=== PATIENT | male | born 1975 | race Caucasian/White ===

== ENCOUNTER 2018-09-22 18:38 | Emergency (ER) | payer OTHER ==
--- NOTE | 2018-09-22 20:19 | RAD ---
THREE VIEWS LEFT ANKLE: Comparison: None. History: Left ankle injury with pain. FINDINGS: Three views of the left ankle shows no evidence of acute fracture or dislocation. No degenerative gato nges are seen. No soft tissue swelling is present. IMPRESSION: Unremarkable exam. POS: DESMOND
--- NOTE | 2018-09-22 21:29 | RAD ---
THREE VIEWS OF THE LEFT FOOT: 09/22/18 COMPARISON: None. HISTORY: Left foot pain. FINDINGS: Three views of the left foot shows no evidence of acute fracture or dislocation. No soft tissue swell ing is seen. No degenerative changes are present. IMPRESSION: Unremarkable exam. POS: DESMOND
== END 2018-09-22 20:05 | disposition home or self-care (01) ==
LOC: SCSER 18:38
DX: S93.402A Sprain of unspecified ligament of left ankle, initial encounter (principal); S93.602A Unspecified sprain of left foot, initial encounter; I10 Essential (primary) hypertension; E78.00 Pure hypercholesterolemia, unspecified; F17.220 Nicotine dependence, chewing tobacco, uncomplicated; Z79.899 Other long term (current) drug therapy; X50.1XXA Overexertion from prolonged static or awkward postures, initial encounter; Y90.9 Presence of alcohol in blood, level not specified

== ENCOUNTER 2019-03-07 09:44 | Outpatient (CLI) | payer OTHER ==
--- NOTE | 2019-03-07 11:36 | RAD ---
Exam: LEFT SHOULDER ARTHROGRAM: HISTORY: Left shoulder pain. Trauma. Left glenoid labrum tear. COMPARISON: None Exposure: 0.7 minutes, 86 mGy/m2. 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 Glenohumeral joint space preserved . Visualized left ribs are unremarkable. Successful left shoulder arthrogram. A total of 10 mL of the contrast mixture was administered in the joint space. TECHNIQUE: Consent obtained to perform a left shoulder arthrogram with fluoroscopic guidance. Left oulder was prepped and draped in a sterile fashion. 1% lidocaine, buffered with sodium bicarbonate was used for local anesthesia. Under fluoroscopic guidance, a 22-gauge spinal needle was advanced in the left shoulder joint space. A total of 10 mL of contrast admixture was administered. No immediate or postprocedure complications. IMPRESSION: Successful left shoulder arthrogram. Transcribed Date/Time: 03/07/2019 12:27 PM
--- NOTE | 2019-03-07 15:38 | MRI ---
MR ARTHROGRAM OF THE LEFT SHOULDER 03/07/19 INDICATION: Left shoulder pain. TECHNIQUE: Multiplanar and multisequence MR images were obtained of the left shoulder following the intra-artic ular administration of dilute gadolinium solution. Please see the separately dictated left shoulder a rthrogram for details concerning the injection technique. FINDINGS: There is a tear involving the anterior inferior and anterior glenoid labrum extending from approximat juliano the 7 o'clock through the 3 o'clock position. Superior glenoid labrum, posterior superior glenoid labrum, and posterior glenoid labrum appear intact. Glenohumeral articular surface demonstrates a mi ld chondrosis of the anterior inferior aspect of the glenoid articular surface. Humeral head articula r surface is normal appearing. There is a degenerative subchondral cyst-like abnormality involving th e posterior gutter tuberosity. Biceps tendon is located. Biceps anchor complex is intact. There is a partial thickness articular surface tear measuring 8 x 4 mm at the level of the anterior supraspinatu s insertion involving approximately one third of the tendon thickness. There is mild AC joint osteoar throsis. No muscular atrophy is present. IMPRESSION: 1. Anterior, anterior inferior and inferior glenoid labral tear. 2. Mild chondrosis of the anterior inferior glenoid articular surface. 3. Low grade partial thickness, articular surface tear of the anterior supraspinatus at the rudy tprint. POS: CET
== END 2019-03-07 09:45 | disposition home or self-care (01) ==
LOC: RAD 09:44
PROVIDERS: ATTEND Orthopaedic Surgery
DX: S43.432A Superior glenoid labrum lesion of left shoulder, initial encounter (principal); M25.512 Pain in left shoulder; S43.402A Unspecified sprain of left shoulder joint, initial encounter
CPT/HCPCS: 23350

== ENCOUNTER 2019-06-12 14:17 | Outpatient (CLI) | payer OTHER ==
[2019-06-12 16:45] LABS: #Eosinphils 0.1 thou/uL (0.0-0.7); #Lymphocytes 2.7 thou/uL (1.20-3.40); #Monocytes 0.7 thou/uL (0.11-0.59); %Basophils 0.3 % (0.0-1.0); %Eosinophils 1.4 % (0.0-10.0); %Lymphocytes 31.4 % (21.0-51.0); %Monocytes 8.2 % (0.0-10.0); %Neutrophils 58.8 % (42.0-75.0); Hemoglobin 14.9 g/dL (14.0-18.0); Mean Corpuscular HGB CONC 34.3 g/dL (32.0-36.0); Mean Corpuscular Hemoglobin 30.8 pg (27.0-31.0); Mean Corpuscular Volume 89.9 fL (78.0-98.0); Mean Platelet Volume 10.3 fL (7.4-10.4); Platelet Count 198 thou/uL (130-400); Red Blood Cell (RBC) Count 4.85 mill/uL (4.70-6.10); White Blood Cell (WBC) Count 8.5 thou/uL (4.8-10.8)
[2019-06-12 17:00] LABS: Anion Gap 13 mmol/L (10-20); BUN (Urea Nitrogen) 12 mg/dL (8.9-20.6); Calc. Creatinine Clearance 0 mL/min (70-130); Carbon Dioxide 28 mmol/L (22-29); Chloride 101 mmol/L (98-107); Estimated GFR-MDRD Greater than 90; Glucose 90 mg/dL (70-105); Potassium 3.4 mmol/L (3.5-5.1); Sodium 139 mmol/L (136-145)
== END 2019-06-12 14:18 | disposition home or self-care (01) ==
LOC: LABBT 14:17
PROVIDERS: ATTEND Orthopaedic Surgery
DX: Z01.818 Encounter for other preprocedural examination (principal); S43.492A Other sprain of left shoulder joint, initial encounter
CPT/HCPCS: 80048; 85025; 93005; 93010